=== PATIENT | male | born 1965 | race Caucasian/White ===

== ENCOUNTER 2016-07-17 05:00 | Emergency (ER) | payer MEDICARE, OTHER ==
[~2016-07-17] VITALS: Ht 177.8 cm; Wt 93.0 kg
[~2016-07-17 05:00] MED LIST: CYCL-36 PO; LISI5 PO; NAPR-576 PO; OMEP20TA39 PO; ZIAC5TAB PO
[2016-07-17 05:04] VITALS: BP 137/89; PULSE 97; RESP 18; O2SAT 96
[2016-07-17] MEDS ORDERED: LISI-519 PO (05:19)
[2016-07-17] MEDS ORDERED: BISO5TAB2 PO (05:19)
--- NOTE | 2016-07-17 05:22 | PD ---
HPI Chief Complaint: Injury Time Seen by Provider: 05:19 Travel History International Travel<30 days: No Contact w/Intl Traveler<30days: No Traveled to known affect area: No History of Present Illness HPI 50-year-old white male presents to emergency department with complaints of left rib pain. He states that he was performing martial arts yesterday evening when a larger opponent laid on his left chest. He states that he had felt and heard several pops in his left chest. Since then he's had difficulty with localizing pain which is exacerbated by taking deep breath or coughing. He denies any shortness of breath. No wheezing. No injury to his abdomen. No numbness, tingling or weakness. Pain is moderate. But can be severe with certain movements. PFSH Past Medical History Narrative Medical hYPERTENSION, copd, multiple orthopedic injuries Arthritis: No Asthma: No Autoimmune Disease: No Blood Disorders: No Anxiety: No Depression: No Heart Rhythm Problems: No Cancer: No Cardiovascular Problems: Yes (HTN) High Cholesterol: No Chemotherapy: No Chest Pain: No Congestive Heart Failure: No COPD: Yes Cerebrovascular Accident: No Diabetes: No Diminished Hearing: No Endocrine: No Glaucoma: No Genitourinary: No Headaches: Yes Hypertension: Yes Immune Disorder: No Kidney Stones: No Musculoskeletal: Yes Neurologic: No Psychiatric: No Respiratory: Yes (COPD) Myocardial Infarction: No Radiation Therapy: No Renal Failure: No Seizures: No Sickle Cell Disease: No Sleep Apnea: No Thyroid Disease: No Tetanus Vaccination: < 5 Years Past Surgical History Narrative Surgical Lumbar fusion, bilateral ankle fusion, foot surgery Abdominal Surgery: No AICD: No Arteriovenous Shunt: No Body Medical Devices: PATIENT REPORTS BONE STIMULATOR IN MID UPPER BACK POST LAMINECTOMY Cardiac Surgery: No Ear Surgery: No Endocrine Surgery: No Eye Surgery: No Genitourinary Surgery: No Gynecologic Surgery: No Insulin Pump: No Joint Replacement: No Oral Surgery: No Pacemaker: No Thoracic Surgery: No Social History Alcohol Use: No Tobacco Use: Yes (1 1/2 PK DAILY) Substance Use: No Allergies-Medications (Allergen,Severity, Reaction): Coded Allergies: MRI PRECAUTION (Verified Allergy, Severe, IMPLANTED NEURO STIMULATOR ADB 01-08-06, 07/17/16) Reported Meds & Prescriptions Reported Meds & Active Scripts Active Reported Lisinopril 5 Mg Tab 5 Mg PO DAILY Bisoprolol-Hydrochlorothiazide 5-6.25 Mg Tab 1 Tab PO DAILY Review of Systems Except as stated in HPI: all other systems reviewed are Neg Physical Exam Narrative GENERAL: Well-developed, well-nourished in no apparent distress. Nontoxic appearing. HEAD: Normocephalic, atraumatic. EYES: Pupils equal round and reactive. Extraocular motions intact. No scleral icterus. No injection or drainage. ENT: Nose clear. Throat without erythema, tonsillar hypertrophy or exudate. Uvula midline. Airway patent. NECK: Trachea midline. Supple, nontender, moves head freely. No central bony tenderness or spasm. CARDIOVASCULAR: Regular rate and rhythm without murmurs, gallops, or rubs. RESPIRATORY: Clear to auscultation. Breath sounds equal bilaterally. No wheezes , rales, or rhonchi. CHEST: Tender left anterior axillary line without deformity or crepitance. No retractions or use of accessory muscles. GASTROINTESTINAL: Abdomen soft, non-tender, nondistended. No hepato-splenomegaly , or palpable masses. No guarding. EXTREMITIES: No clubbing, cyanosis, or edema. No joint tenderness. BACK: Nontender without deformity. No flank tenderness. NEUROLOGICAL: Awake, alert and oriented x 3 .Cranial nerves grossly intact. Motor and sensory grossly within normal limits. Normal speech. Data Data Last Documented VS Vital Signs Date Time Temp Pulse Resp B/P Pulse Ox O2 Delivery O2 Flow Rate FiO2 07/17/16 05:04 97 18 137/89 96 Orders Ribs, Uni (W/Exp Cxr-Min 3vw) (07/17/16 05:18) Acetamin-Hydrocod 325-5 Mg (Purdum 5-325 (07/17/16 06:15) Ibuprofen (Motrin) (07/17/16 06:15) [facility] Medical Decision Making Medical Screen Exam Complete: Yes Emergency Medical Condition: Yes Medical Record Reviewed: Yes Interpretation(s) Left ribs: Negative for acute bony injury no acute pulmonary process. Differential Diagnosis MDM: High Differential diagnoses: Fracture, sprain, strain, dislocation, contusion, neurovascular injury Narrative Course X-ray is negative. Patient's given Lortab 5 and Motrin 800 mg by mouth. This is left chest wall contusion Diagnosis Primary Impression: Contusion of left chest wall Qualified Code: S20.212A - Contusion of left chest wall, initial encounter Patient Instructions: General Instructions Departure Forms: Tests/Procedures, Work Release Special Instructions: No work 3 days. Additional Instructions: Rest. Ice for the next 3 days followed by heat . Motrin and Lortab. Deep breaths every half hour.. Follow-up with a primary care doctor in one week. Return to the ER for emergencies. Med/Other Pt SpecificInfo: Prescription(s) given Scripts Hydrocodone-Acetaminophen (Lortab)5-325 Mg Tab1 Tab PO Q8HR PRN (PAIN) #20 TAB Prov:Isaac Alvarado MD 07/17/16 Ibuprofen 800 Mg [id number] Mg PO Q8H PRN (Pain/Inflammation) #30 TAB Prov:Isaac Alvarado MD 07/17/16 Disposition: 01 DISCHARGE HOME Condition: Stable Chicho Morel Jul 17, 2016 05:22
--- NOTE | 2016-07-17 05:58 | RADRPT ---
EXAM DATE/TIME: 07/17/2016 05:53 [facility] COMPARISON: No previous studies available for comparison. INDICATIONS : Left flank rib pain from trauma sustained in a [employer] class. MEDICAL HISTORY : None. SURGICAL HISTORY : None. ENCOUNTER: Initial ACUITY: 1 day PAIN SCORE: 10/10 LOCATION: Left flank FINDINGS: Multiple views of the left ribs were performed. There is no evidence of displaced fracture. No dest ructive lesions or areas of periosteal thickening are seen. Expiratory view of the chest is negative for pneumothorax. The mediastinal structures are midline. Surgical hardware is seen in the lower lumbar spine. There is an electronic device seen over the uppe r lobe lumbar spine with leads directed towards the lower lumbar spine. CONCLUSION: The ribs appear intact. Chase Adrian MD on July 17, 2016 at 5:55 Board Certified Radiologist. This report was verified electronically.
[2016-07-17] MEDS ORDERED: HYDR-3533 PO (06:03)
[2016-07-17] MEDS ORDERED: IBUP800T23 PO (06:03)
[2016-07-17] MEDS ORDERED: IBUPROFEN 800 MG TAB PO ONE (06:15)
[2016-07-17] MEDS ORDERED: ACETAMINOPHEN/HYDROcodone 325 MG/5 MG TAB PO ONE (06:15)
== END 2016-07-17 06:27 | disposition home or self-care (01) ==
LOC: NEPB 05:00
DX: S20.212A Contusion of left front wall of thorax, initial encounter (principal); I10 Essential (primary) hypertension; F17.200 Nicotine dependence, unspecified, uncomplicated; Z87.09 Personal history of other diseases of the respiratory system; Z87.39 Personal history of other diseases of the musculoskeletal system and connective tissue; X58.XXXA Exposure to other specified factors, initial encounter; Y93.75 Activity, martial arts
CPT/HCPCS: 71101; 99283